=== PATIENT | female | born 1990 | race Caucasian/White ===

== ENCOUNTER → 2018-10-02 | Outpatient (CLI) | payer BC ==
--- NOTE | 2018-10-02 08:47 | Diagnostic Imaging Report ---
Exam: KUB - 2 views Indication: Renal calculi Comparison: None Findings: 5 mm right lower pole renal calculus. No other radiographically apparent renal calculi. Nonobstructive bowel gas pattern. The osseous structures appear unremarkable. Impression: 5 mm right lower pole renal calculus. Signed by: Helder Hyde MD on 10/02/2018 8:44 AM
--- NOTE | 2018-10-02 09:02 | Diagnostic Imaging Report ---
EXAM: Renal Ultrasound INDICATION: ^[id number] ^[id number] COMPARISON: None TECHNIQUE: Transverse and longitudinal images of the kidneys and bladder were obtained. FINDINGS: Right Kidney: Length: 10.6 cm Appearance: Normal echogenicity. Collecting system: No hydronephrosis Stones: None Cyst/Mass: None Left Kidney: Length: 10.6 cm Appearance: Normal echogenicity. Collecting system: No hydronephrosis Stones: None Cyst/Mass: None Bladder: No mass or calculi. Prevoid volume estimate of 105.5 cc. Bilateral ureteral jets seen. Post void images demonstrate volume estimate of 6.4 cc. IMPRESSION: No hydronephrosis. The right lower pole 5 mm renal calculus seen on KUB is not well appreciated on this sonographic examination. Signed by: Helder Hyde MD on 10/02/2018 8:59 AM
--- NOTE | 2018-10-02 09:02 | Diagnostic Imaging Report ---
EXAM: Renal Ultrasound INDICATION: ^[id number] ^[id number] COMPARISON: None TECHNIQUE: Transverse and longitudinal images of the kidneys and bladder were obtained. FINDINGS: Right Kidney: Length: 10.6 cm Appearance: Normal echogenicity. Collecting system: No hydronephrosis Stones: None Cyst/Mass: None Left Kidney: Length: 10.6 cm Appearance: Normal echogenicity. Collecting system: No hydronephrosis Stones: None Cyst/Mass: None Bladder: No mass or calculi. Prevoid volume estimate of 105.5 cc. Bilateral ureteral jets seen. Post void images demonstrate volume estimate of 6.4 cc. IMPRESSION: No hydronephrosis. The right lower pole 5 mm renal calculus seen on KUB is not well appreciated on this sonographic examination. Signed by: Helder Hyde MD on 10/02/2018 8:59 AM
== END ==
LOC: US 07:38
PROVIDERS: ATTEND Urology
DX: N20.0 Calculus of kidney (principal)
CPT/HCPCS: 74018; 76770; 76857

== ENCOUNTER 2019-01-10 00:23 | Inpatient (IN) | payer BC ==
[~2019-01-10] VITALS: Ht 149.9 cm; Wt 71.2 kg
[2019-01-10] VITALS (8 sets, daily range): BP systolic 105–135; BP diastolic 56–88
[~2019-01-10 00:23] MED LIST: ADDERALL 10 MG10 MG PO; PHENTERMINE H37.5 M1 PO
--- NOTE | 2019-01-10 00:30 | NUR ---
Patient does not want a straight cath, dr chavis informed
[2019-01-10] MEDS ORDERED: KETOROLAC TROMETHAMINE 30 MG/ML VIAL IV STA (00:38)
[2019-01-10] MEDS ORDERED: SODIUM CHLORIDE 0.9% 1000ML 1,000 ML IV STA (00:38)
[2019-01-10 00:52] LABS: BASOPHILS # (AUTO) 0.1 (0.0-0.1); BASOPHILS % 0.3 % (0.0-1.0); EOSINOPHILS % 0.2 % (0.0-6.0); HEMATOCRIT 40.6 % (34.2-44.1); HEMOGLOBIN 13.7 g/dL (12.0-16.0); LYMPHOCYTES # (AUTO) 2.7 (1.0-3.2); LYMPHOCYTES % 16.1 % (18.0-39.1); MEAN CORPUSCULAR HEMOGLOBIN 28.8 pg (28-32); MEAN CORPUSCULAR HGB CONC 33.7 g/dL (31-35); MEAN CORPUSCULAR VOLUME 85.3 fL (81-99); MONOCYTES # (AUTO) 0.8 (0.2-0.8); MONOCYTES % 4.9 % (4.4-11.3); NEUTROPHILS % 78.1 % (38.7-80.0); PLATELET COUNT 337 x10e3/uL (140-360); RED BLOOD COUNT 4.76 x10e6/uL (3.6-5.1); RED CELL DISTRIBUTION WIDTH 12.3 % (11.7-14.4)
[2019-01-10 00:53] LABS: BILIRUBIN,URINE NEGATIVE (NEGATIVE); CLARITY,URINE CLEAR (CLEAR); COLOR,URINE ORANGE (YELLOW); KETONES,URINE NEGATIVE (NEGATIVE); LEUKOCYTE ESTERASE ,URINE NEGATIVE (NEGATIVE); NITRITE,URINE POSITIVE (NEGATIVE); PROTEIN,URINE DIPSTICK 1+ (NEGATIVE); URINE UROBILINOGEN 1 mg/dL (0.2 - 1)
[2019-01-10 01:03] LABS: RBC,URINE >50 /HPF (0-5)
[2019-01-10 01:04] LABS: BACTERIA,URINE MODERATE /HPF; EPITHELIAL CELLS,URINE FEW /LPF; MUCUS,URINE MODERATE (RARE)
[2019-01-10 01:14] LABS: ALANINE AMINOTRANSFERASE 11 IU/L (0-55); ALBUMIN 4.2 g/dL (3.5-5.0); ALBUMIN/GLOBULIN RATIO 1.2 (0.8-2.0); ALKALINE PHOSPHATASE 55 IU/L (40-150); ANION GAP 15.6 mmol/L (8-16); BLOOD UREA NITROGEN 12 mg/dL (7-26); BUN/CREATININE RATIO 12 (6-25); CALCIUM 9.7 mg/dL (8.4-10.2); CARBON DIOXIDE 22 mmol/L (22-29); CHLORIDE 106 mmol/L (98-107); CREATININE, SERUM 1.02 mg/dL (0.57-1.11); EST GLOMERULAR FILTRATION RATE > 60 ML/MIN (60-); GLUCOSE 130 mg/dL (74-118); POTASSIUM 3.6 mmol/L (3.5-5.1); SODIUM 140 mmol/L (136-145)
[2019-01-10] MEDS ORDERED: CEFEPIME HCL 1 GM VIAL IV SCH (01:30)
[2019-01-10] MEDS ORDERED: CEFEPIME 1GM/NS 0.9% 50 ML 50 ML IV ONE (01:45)
[2019-01-10] MEDS ORDERED: MORPHINE SULFATE 5 MG/ML VIAL IV ONE (01:45)
[2019-01-10] MEDS ORDERED: MORPHINE SULFATE INJ 4 MG/ML INJ 1ML ONE (01:58)
--- NOTE | 2019-01-10 01:58 | Diagnostic Imaging Report ---
EXAM: CT Abdomen and Pelvis WITHOUT contrast INDICATION: Right flank pain COMPARISON: Abdominal radiograph 12/27/2018. TECHNIQUE: Abdomen and pelvis were scanned utilizing a multidetector helical scanner from the lung base to the pubic symphysis without administration of IV contrast. Absence of intravenous contrast decreases sensitivity for detection of focal lesions and vascular pathology. Coronal and sagittal reformations were obtained. Routine protocol was performed. IV CONTRAST: None ORAL CONTRAST: None COMPLICATIONS: None RADIATION DOSE: Total DLP: 345 mGy*cm Estimated effective dose: (DLP x 0.015 x size factor) mSv CTDIvol has been reviewed. It is below the limits set by the Radiation Protocol Committee (RPC). Dose modulation, iterative reconstruction, and/or weight based adjustment of the mA/kV was utilized to reduce the radiation dose to as low as reasonably achievable. FINDINGS: LINES and TUBES: None. LOWER THORAX: Unremarkable HEPATOBILIARY: No focal hepatic lesions. No biliary ductal dilation. GALLBLADDER: No radio-opaque stones or sludge. No wall thickening. SPLEEN: No splenomegaly. PANCREAS: No focal masses or ductal dilatation. ADRENALS: No adrenal nodules KIDNEYS/URETERS: A 4 mm obstructive calculus at the right vesicoureteral junction, with mild upstream right hydroureteronephrosis. No cystic or solid mass lesions. Nonobstructive Punctate calculus in a right renal interpolar calyx. GI TRACT: No abnormal distention, wall thickening, or evidence of bowel obstruction. Appendix is normal. PELVIC ORGANS/BLADDER: Unremarkable. LYMPH NODES: No lymphadenopathy. VESSELS: Unremarkable. PERITONEUM / RETROPERITONEUM: No free air or fluid. BONES: Unremarkable. SOFT TISSUES: Unremarkable. IMPRESSION: A 4 mm obstructive calculus at the right vesicoureteral junction, with mild upstream right hydroureteronephrosis. Additional punctate calculus in the right kidney. Signed by: Dany Robb DO on 01/10/2019 1:55 AM
[2019-01-10] MEDS ORDERED: ONDANSETRON HCL INJ 2MG/ML 2ML 2 MG/ML VIAL IV PRN (02:30)
--- NOTE | 2019-01-10 05:02 | NUR ---
PT IS TRANSFERRED FROM ER .PT IS AOX3 . RESPIRATIONS ARE EVEN AND UNLABORED LEFT AC 20 G S/L ASSESSMENT DONE .CALL LIGHT WITH IN REACH .CONTINUE TO MONITOR
[2019-01-10] MEDS: MORPHINE SULFATE INJ 4 MG/ML INJ 1ML IV PRN ×2 (05:51→10:06)
--- NOTE | 2019-01-10 06:31 | NUR ---
C/O PAIN AND GIVEN ORDERED MORPHINE .STRAINED THE URINE .NO STONE FOUND YET .CALL LIGHT WITH IN REACH .CONTINUE TO MONITOR
--- NOTE | 2019-01-10 07:00 | NUR ---
RECEIVED PATIENT RESTING IN BED NO S/S OF DISTRESS. BED LOW, WHEELS LOCKED, SIDE RAILS X2. CALL LIGHT IN REACH WILL CONTINUE TO MONITOR PATIENT.
--- NOTE | 2019-01-10 07:02 | NUR ---
BEDSIDE REPORT GIVEN TO THE ONCOMING NURSE
[2019-01-10 07:26] LABS: CREATINE KINASE MB 1.1 ng/mL (0-5.0)
[2019-01-10 09:28] LABS: CREATINE KINASE MB 1.1 ng/mL (0-5.0)
--- NOTE | 2019-01-10 11:05 | NUR ---
PATIENT A/O X3, EVEN RESPIRATIONS ON RA. LUNG SOUNDS CLEAR TO AUSCULTATION. BOWEL SOUNDS PRESENT. PATIENT AMBULATES INDEPENDENTLY. RIGHT AC 20 GAUGE IV SL. MORPHINE Q4 PRN FOR PAIN. CALL LIGHT IN REACH WILL CONTINUE TO MONITOR PATIENT.
[2019-01-10] MEDS: SODIUM CHLORIDE 0.9% 1000ML 1,000 ML IV SCH ×2 (11:50→20:26)
[2019-01-10] MEDS: HYDROMORPHONE 1MG/1ML INJ IV PRN ×2 (12:01→18:47)
[2019-01-10] MEDS: DIPHENHYDRAMINE HCL INJ 50 MG/ML VIAL IV PRN ×2 (13:11→21:50)
[2019-01-10] MEDS: CEFEPIME 1GM/NS 0.9% 50 ML 50 ML IV SCH ×2 (13:11→20:26)
--- NOTE | 2019-01-10 14:10 | NUR ---
Visit made by the Spiritual Care Department MARY CARMEN AugustinelaAdriana phillips. PV provided pastoral presence, hospitality, prayer, and supportive listening. Pastoral Visitor informed pt/family of the scope of Unit Operator Services and availability. CHRISTIAN Augustinelain Spiritual Care Department O: [phone]
[2019-01-10] MEDS: KETOROLAC TROMETHAMINE 30 MG/ML VIAL IV PRN ×2 (14:23→20:35)
[2019-01-10 16:40] LABS: CREATINE KINASE MB 1.2 ng/mL (0-5.0)
[2019-01-10] MEDS: ENOXAPARIN SOD INJ 40 MG/0.4 ML SYR SC SCH (17:41)
--- NOTE | 2019-01-10 18:01 | History and Physical ---
CHIEF COMPLAINT: Right-sided flank pain. HISTORY OF PRESENT ILLNESS: This lady is a 28-year-old female with known history of nephrolithiasis, comes in with right-sided flank pain that radiated to her right groin area. The patient recently had lithotripsy performed by Dr. Urban. Of note, last night around 7 p.m. noticed right-sided flank pain, severe onset and came in to the emergency room for further evaluation. She was found to have a urinary tract infection and 4 mm stone in the right flank ureteral area. The patient was seen and evaluated at bedside on the medical floor. She is currently doing much better. She does report having some pain in which the pain medications were adjusted accordingly. REVIEW OF SYSTEMS: Pertinent positives: Right-sided flank pain. Pertinent negatives: Denies any chest pain, palpitation, nausea, vomiting, diarrhea, dysuria, hematuria, frequency, urgency, lightheadedness, dizziness, abdominal pain, headaches, shortness of breath, cough, congestion, fever, or any other complaints. The rest of the 14-point review of systems have been reviewed with the patient and are negative. ALLERGIES: NO KNOWN DRUG ALLERGIES. HOME MEDICATIONS: Takes Adderall 10 mg daily and phentermine daily. PAST MEDICAL HISTORY: She has history of ADHD and nephrolithiasis. PAST SURGICAL HISTORY: She has cystoscopy with lithotripsy for renal stones. FAMILY HISTORY: Hypertension and diabetes. SOCIAL HISTORY: No drugs. No alcohol. Does not smoke. Good social support. PHYSICAL EXAMINATION: VITAL SIGNS: Temperature is 97.4, pulse 61, respiratory rate is 15, blood pressure 105/60, and pulse ox 98% on room air. GENERAL: Not in acute distress. Alert and oriented x3. Cooperative on examination. HEENT: Head; normocephalic, atraumatic. Eyes; pupils are equal, round, and reactive to light bilaterally. Extraocular movements intact bilaterally. Throat; no evidence of erythema or exudates in the posterior pharynx. Has poor dentition. NECK: Supple. Good range of motion. PULMONARY: Clear to auscultation bilaterally. No wheezing, no rales, no rhonchi, no crackles appreciated. CARDIOVASCULAR: Positive S1 and S2. No murmurs, rubs, or gallops appreciated. ABDOMEN: Soft and nondistended. Bowel sounds present. She is tender to palpation in the right flank area. MUSCULOSKELETAL: Strength is 5/5 throughout. No evidence of any muscle deficits on examination. No weakness appreciated. NEUROLOGIC: Cranial nerves II through XII grossly intact. No evidence of any neurological deficits on exam. SKIN: Intact. Warm to touch. Good cap refill. PSYCHIATRIC: Normal affect and mood. EXTREMITIES: No edema. Good range of motion throughout. LABORATORY FINDINGS: Show white count is 16.6, hemoglobin 13.7, hematocrit is 41, and platelets of 337. Chemistry; sodium 140, potassium 3.6, chloride 106, bicarb 22, anion gap of 15, BUN 12, creatinine is 1, glucose is 130, and calcium is 9.7. LFTs within normal range. Troponins were negative. Albumin was 4.2. Urinalysis concerning for UTI. Urine test was negative. MICROBIOLOGY: Urine cultures are pending. IMAGING STUDIES: CT abdomen and pelvis shows a 4 mm obstructing calculus at the right vesicoureteral junction with mild upstream right hydroureteronephrosis. Additional punctate calculus in the right kidney. IMPRESSION: 1. A 4 mm obstructive calculus with right hydroureteronephrosis. 2. Right-sided flank pain secondary to nephrolithiasis. 3. Nausea, decreased oral intake. 4. History of attention-deficit/hyperactivity disorder. PLAN: At this time, monitor urine cultures, IV antibiotics. Urology consulted for further management and care. IV fluids, pain control. N.p.o. for now for possible intervention later today if indicated by Urology. Resume same home medications. Put on Lovenox for DVT prophylaxis. Otherwise, we will continue with same plan of care. Discussed plan of care with nursing staff. I did change her pain medication to IV Dilaudid 0.5 mg IV q.4 hours p.r.n. for pain, as she reports severe episodic right-sided flank pain. MD CHON Ambriz/GINA /[id number]
--- NOTE | 2019-01-10 19:05 | NUR ---
received report from day nurse. patient is resting comfortably in bed. bed is in lowest position and call avina is within reach. will continue to monitor patient's plan of care.
[2019-01-11] VITALS (8 sets, daily range): BP systolic 92–126; BP diastolic 57–77
[2019-01-11] MEDS: CEFEPIME 1GM/NS 0.9% 50 ML 50 ML IV SCH ×3 (05:10→21:18)
[2019-01-11 05:58] LABS: BASOPHILS % 0.3 % (0.0-1.0); EOSINOPHILS # (AUTO) 0.1 (0.0-0.4); EOSINOPHILS % 1.4 % (0.0-6.0); HEMATOCRIT 35.7 % (34.2-44.1); HEMOGLOBIN 11.5 g/dL (12.0-16.0); LYMPHOCYTES # (AUTO) 3.3 (1.0-3.2); LYMPHOCYTES % 45.9 % (18.0-39.1); MEAN CORPUSCULAR HEMOGLOBIN 28.5 pg (28-32); MEAN CORPUSCULAR HGB CONC 32.2 g/dL (31-35); MEAN CORPUSCULAR VOLUME 88.6 fL (81-99); MONOCYTES # (AUTO) 0.4 (0.2-0.8); MONOCYTES % 5.7 % (4.4-11.3); NEUTROPHILS # (AUTO) 3.4 (2.1-6.9); NEUTROPHILS % 46.4 % (38.7-80.0); PLATELET COUNT 242 x10e3/uL (140-360); RED BLOOD COUNT 4.03 x10e6/uL (3.6-5.1); RED CELL DISTRIBUTION WIDTH 12.4 % (11.7-14.4)
[2019-01-11 06:25] LABS: ALANINE AMINOTRANSFERASE 9 IU/L (0-55); ALKALINE PHOSPHATASE 43 IU/L (40-150); ANION GAP 10.6 mmol/L (8-16); BLOOD UREA NITROGEN 12 mg/dL (7-26); BUN/CREATININE RATIO 17 (6-25); CALCIUM 7.9 mg/dL (8.4-10.2); CARBON DIOXIDE 21 mmol/L (22-29); CHLORIDE 111 mmol/L (98-107); CREATININE, SERUM 0.69 mg/dL (0.57-1.11); EST GLOMERULAR FILTRATION RATE > 60 ML/MIN (60-); GLUCOSE 83 mg/dL (74-118); POTASSIUM 3.6 mmol/L (3.5-5.1); SODIUM 139 mmol/L (136-145)
--- NOTE | 2019-01-11 07:04 | NUR ---
report given to day nurse. patient is resting comfortably in bed. bed is in lowest position and call avina is within reach.
[2019-01-11] MEDS ORDERED: D AMPHET PO SCH (09:00)
[2019-01-11] MEDS ORDERED: AMPHET ASP PO SCH (09:00)
[2019-01-11] MEDS ORDERED: AMPHET PO SCH (09:00)
--- NOTE | 2019-01-11 09:16 | NUR ---
Patient up in bed, not in any distress, Dr Lua had rounds.
[2019-01-11] MEDS: KETOROLAC TROMETHAMINE 30 MG/ML VIAL IV PRN ×3 (09:53→21:36)
[2019-01-11] MEDS: SODIUM CHLORIDE 0.9% 1000ML 1,000 ML IV SCH ×2 (10:50→21:30)
--- NOTE | 2019-01-11 13:52 | Diagnostic Imaging Report ---
EXAM: Abdomen Radiograph 1 View(s) INDICATION: Kidney stone. COMPARISON: 12/27/2018. FINDINGS: No lines or tubes. Normal volume of stool in the colon. No dilated loops of small bowel. The previously seen 4 mm calculus at the right ureterovesical junction is not seen on this exam. No abnormal soft tissue masses. No pneumoperitoneum. No acute osseous abnormality. IMPRESSION: The previously seen 4 mm calculus at the right ureterovesical junction is not seen on this exam. Signed by: Ramiro Clark MD on 01/11/2019 7:46 AM
--- NOTE | 2019-01-11 15:21 | NUR ---
RECEIVED NOTICE FROM THE BUSINESS OFFICE - INPT approved for 3 days stay eff 01/10/19 - 01/13/19, if pt goes over please fax clinicals to #[phone], refer to auth # [id number]. CALL TO DR. TAN FOR INPT STAY. NOTED KUB RESULT TODAY. WILL AWAIT CALL BACK.
[2019-01-11] MEDS: ENOXAPARIN SOD INJ 40 MG/0.4 ML SYR SC SCH (17:20)
--- NOTE | 2019-01-11 20:15 | NUR ---
received report from day shift nurse. patient is resting comfortably in bed. bed is in lowest position and call avina is within reach. will continue to monitor patient.
[2019-01-12] VITALS (8 sets, daily range): BP systolic 105–125; BP diastolic 58–74
[2019-01-12] MEDS: CEFEPIME 1GM/NS 0.9% 50 ML 50 ML IV SCH ×3 (05:11→20:49)
[2019-01-12 06:38] LABS: BASOPHILS % 0.6 % (0.0-1.0); EOSINOPHILS # (AUTO) 0.2 (0.0-0.4); EOSINOPHILS % 2.7 % (0.0-6.0); HEMATOCRIT 36.7 % (34.2-44.1); HEMOGLOBIN 12.1 g/dL (12.0-16.0); LYMPHOCYTES # (AUTO) 2.7 (1.0-3.2); LYMPHOCYTES % 38.5 % (18.0-39.1); MEAN CORPUSCULAR HEMOGLOBIN 28.6 pg (28-32); MEAN CORPUSCULAR VOLUME 86.8 fL (81-99); MONOCYTES # (AUTO) 0.4 (0.2-0.8); NEUTROPHILS # (AUTO) 3.6 (2.1-6.9); NEUTROPHILS % 51.9 % (38.7-80.0); PLATELET COUNT 262 x10e3/uL (140-360); RED BLOOD COUNT 4.23 x10e6/uL (3.6-5.1); RED CELL DISTRIBUTION WIDTH 12.3 % (11.7-14.4)
--- NOTE | 2019-01-12 06:49 | NUR ---
report given to day nurse. patient is resting comfortably in bed. bed is in lowest position and call avina is within reach.
[2019-01-12 07:07] LABS: BLOOD UREA NITROGEN 9 mg/dL (7-26); BUN/CREATININE RATIO 13 (6-25); CALCIUM 8.4 mg/dL (8.4-10.2); CARBON DIOXIDE 22 mmol/L (22-29); CHLORIDE 109 mmol/L (98-107); CREATININE, SERUM 0.68 mg/dL (0.57-1.11); EST GLOMERULAR FILTRATION RATE > 60 ML/MIN (60-); GLUCOSE 91 mg/dL (74-118); SODIUM 139 mmol/L (136-145)
[2019-01-12] MEDS ORDERED: IOPAMIDOL 300MG/ML 100 ML INFUS..BTL IV ONE (10:28)
--- NOTE | 2019-01-12 12:04 | NUR ---
patient off the unit for IVP, Stable
[2019-01-12] MEDS: KETOROLAC TROMETHAMINE 30 MG/ML VIAL IV PRN (12:55)
[2019-01-12] MEDS: ENOXAPARIN SOD INJ 40 MG/0.4 ML SYR SC SCH (16:15)
--- NOTE | 2019-01-12 18:54 | NUR ---
received repot from day nurse. patient is resting comfortably in bed. bed is in lowest position and call avina is within reach. will continue to monitor patient.
[2019-01-12] MEDS: SODIUM CHLORIDE 0.9% 1000ML 1,000 ML IV SCH (20:49)
[2019-01-13 00:56] VITALS: BP 100/56
[2019-01-13 04:00] VITALS: BP 111/56
[2019-01-13] MEDS: CEFEPIME 1GM/NS 0.9% 50 ML 50 ML IV SCH (05:03)
[2019-01-13] MEDS: SODIUM CHLORIDE 0.9% 1000ML 1,000 ML IV SCH (05:04)
[2019-01-13 06:17] LABS: BASOPHILS % 0.6 % (0.0-1.0); EOSINOPHILS # (AUTO) 0.2 (0.0-0.4); HEMATOCRIT 37.2 % (34.2-44.1); HEMOGLOBIN 12.4 g/dL (12.0-16.0); LYMPHOCYTES # (AUTO) 2.6 (1.0-3.2); LYMPHOCYTES % 37.6 % (18.0-39.1); MEAN CORPUSCULAR HEMOGLOBIN 28.7 pg (28-32); MEAN CORPUSCULAR HGB CONC 33.3 g/dL (31-35); MEAN CORPUSCULAR VOLUME 86.1 fL (81-99); MONOCYTES # (AUTO) 0.4 (0.2-0.8); NEUTROPHILS # (AUTO) 3.7 (2.1-6.9); NEUTROPHILS % 52.5 % (38.7-80.0); PLATELET COUNT 273 x10e3/uL (140-360); RED BLOOD COUNT 4.32 x10e6/uL (3.6-5.1); RED CELL DISTRIBUTION WIDTH 12.3 % (11.7-14.4)
[2019-01-13 06:48] LABS: BLOOD UREA NITROGEN 8 mg/dL (7-26); BUN/CREATININE RATIO 12 (6-25); CALCIUM 8.5 mg/dL (8.4-10.2); CHLORIDE 109 mmol/L (98-107); CREATININE, SERUM 0.69 mg/dL (0.57-1.11); EST GLOMERULAR FILTRATION RATE > 60 ML/MIN (60-); GLUCOSE 87 mg/dL (74-118); POTASSIUM 4.3 mmol/L (3.5-5.1); SODIUM 139 mmol/L (136-145)
[2019-01-13 07:06] LABS: ANION GAP 10.3 mmol/L (8-16); CARBON DIOXIDE 23 mmol/L (22-29)
[2019-01-13 07:15] VITALS: BP 111/65
--- NOTE | 2019-01-13 07:15 | NUR ---
PATIENT IN BED WITH HEAD OF BED ELEVATED PLAYING ON HER PHONE. DENIED PAIN AT THIS TIME. BED IN LOWER POSITION, CALL LIGHT AT REACH.
--- NOTE | 2019-01-13 07:25 | NUR ---
report given to day nurse. patient is resting in bed. bed is in lowest position and call light is within reach.
[2019-01-13 07:37] VITALS: BP 111/65
--- NOTE | 2019-01-13 08:53 | Diagnostic Imaging Report ---
Exam: KUB - 2 views Indication: Hydronephrosis Comparison: KUB 01/11/2019 Findings: Live Truck Technician KUB demonstrates nonobstructive bowel gas pattern and no radiographically apparent renal calculi. The osseous structures appear unremarkable. IV pyelogram shows mild left hydronephrosis and no right hydronephrosis. The ureter appears normal throughout its course on the right. The left distal ureter is not well opacified on any of the images. Contrast fills the bladder. Impression: Mild left hydronephrosis. Distal left ureter not well opacified, limiting evaluation for obstructive lesion. No right hydronephrosis. No radiographically apparent renal calculi. Signed by: Helder Hyde MD on 01/13/2019 8:50 AM
[2019-01-13 11:12] VITALS: BP 133/75
--- NOTE | 2019-01-13 11:44 | NUR ---
PATIENT PASSED A SMALL STONE. COLLECTED AND SENT TO THE LAB. IN BED WITH CALL LIGHT AT REACH.
--- NOTE | 2019-01-13 13:15 | Discharge Summary ---
FINAL DISCHARGE DIAGNOSES: 1. Obstructive calculus with right hydroureteronephrosis, status post stone passed, now with much improvement. 2. Right-sided flank pain secondary to nephrolithiasis-resolved. 3. Nausea, vomiting, decreased oral intake-resolved. 4. History of attention deficit hyperactivity disorder. CONSULTANTS: Urology. PHYSICAL EXAMINATION: VITAL SIGNS: Temperature 96.6, pulse 60, respiratory rate is 18, blood pressure 132/75, and pulse ox 99% on room air. LABORATORY FINDINGS: Show white count on admission was 16.6, now 6.9, hemoglobin 12.4, hematocrit is 37, and platelets of 273. Chemistry; sodium 139, potassium 4.3, chloride 109, bicarb 23, anion gap of 10, BUN is 8, creatinine 0.69, glucose is 87, and calcium 8.5. LFTs within normal range. Troponins were all negative. Albumin was 3. Urinalysis concerning for UTI. Stone analysis now pending as the patient passes stone. Urine cultures were found to be negative. IMAGING STUDIES: CT abdomen and pelvis shows a 4 mm obstructing calculus of the right vesicoureteral junction with mild upstream right hydroureteronephrosis. Additional punctate calculus in the right kidney. Abdominal x-ray on 01/11/2019, shows a previously seen 4 mm calculus at the right ureterovesical junction is not seen on this exam. IVP was performed, shows mild left hydronephrosis. Distal left ureter not well opacified as limiting evaluation of obstructive lesion. No right hydronephrosis. No radiographically apparent renal calculi. HOSPITAL COURSE: This is a 28-year-old female, who came into the ED with complaints of right-sided flank pain with imaging studies consistent with a 4 mm obstructive ureteral stone. Urology was consulted. The patient was started on broad-spectrum IV antibiotics, pain control. Urine cultures were found to be negative. Imaging studies, abdominal x-ray on 01/08/2019, shows no stone with IVP performed on 09/11/2018, shows no radiographic apparent right renal calculi with no right hydronephrosis. The patient did well throughout the hospital course. She actually passed the stone while she was here in the hospital, was sent for analysis. She was cleared for discharge by Urology with outpatient followup. On the day of discharge, vital signs were stable, labs were reviewed and stable. The patient was seen, evaluated, and examined thoroughly on the day of discharge. No other complaints. The patient verbalized understanding and agrees to plan of care to follow up accordingly as an outpatient with the primary care physician in 1 week and the urologist in 1 to 2 weeks' time. MEDICATIONS: See med reconciliation form. DISPOSITION: Home. CONDITION: Stable. DIET: Heart healthy. In the event of any worsening symptoms, the patient was advised to come back to the ED for further evaluation. Discharge summary took greater than 35 minutes. MD CHON Ambriz/MODRenée /[id number]
[2019-01-13] MEDS ORDERED: TYLENOL WITH C1 EACH PO (14:01)
--- NOTE | 2019-01-13 14:45 | NUR ---
PATIENT DISCHARGED HOME. DISCHARGE INSTRUCTIONS, PRESCRIPTIONS, AND FOLLOW UP GIVEN TO PATIENT, SHE VERBALIZED UNDERSTANDING. IV TO RIGHT AC REMOVED WITH TIP INTACT. ALL PERSONAL ITEMS TAKEN WITH PATIENT. REFUSED WHEEL CHAIR, BUT WAS ACCOMPANIED BY HOSPITAL STAFF TO FRONT LOBBY IN STABLE CONDITION.
== END 2019-01-13 14:49 | disposition home or self-care (01) | DRG 694 ==
LOC: ER 00:23 → ERHOLD 03:32 → MED/SURG3 03:51 → OBSVTOIN 01-11 15:31
PROVIDERS: ADMIT Internal Medicine; ATTEND Internal Medicine
DX: N13.2 Hydronephrosis with renal and ureteral calculous obstruction (principal); F90.9 Attention-deficit hyperactivity disorder, unspecified type; Z83.3 Family history of diabetes mellitus; Z82.49 Family history of ischemic heart disease and other diseases of the circulatory system
CPT/HCPCS: 36415; 74018; 74176; 74400; 80048; 80053; 81001; 81025; 82550; 82553; 84484; 85025; 87086; 88300; 99284; G0378; J0692; J1170; J1200; J1650; J1885; J2270; J2405; J7030; Q9967

== ENCOUNTER 2019-10-20 13:26 | Emergency (ER) | payer BC ==
[~2019-10-20] VITALS: Ht 149.9 cm; Wt 72.6 kg
[~2019-10-20 13:26] MED LIST changes: +TYLENOL WITH C1 EACH PO
[2019-10-20] MEDS ORDERED: ONDANSETRON HCL 4 MG ORAL DISINTEGRATING TAB PO ONE (14:00)
[2019-10-20] MEDS ORDERED: ACETAMINOPHEN 325 MG TAB PO ONE (14:00)
[2019-10-20] MEDS ORDERED: KETOROLAC TROMETHAMINE 60 MG/2 ML VIAL IM ONE (14:00)
[2019-10-20] MEDS ORDERED: ONDANSETRON HCL 4 MG ORAL DISINTEGRATING TAB ONE (14:02)
--- OUTSIDE RECORDS SUMMARY | 2019-10-20 14:41 | XMS REPORT | Continuity of Care Document ---
Author Author [facility] t Organization [facility] Address [address] [place] [address] Phone Unavailable Care Team Providers Care Human Resources Talent Manager Name Role Phone Marcello TATE MD PCP DAHU, S JIRIES Attphys Unavailable HAMPEL, VIKTOR Attphys Unavailable DAHU, S JIRIES Admphys Unavailable Payers Payer Name Policy Type Policy Number Effective Date Expiration Date S nayeli [facility] [id number] 2018 00:00:00 [facility] Problems Condition Name Condition Details Condition Category Status Onset Date Resolution Date Last Treatment Date Treating Clinician Comments Source Urinary tract infection UTI (urinary tract infection) Problem Active [facility] Calculus of ureter Ureterolithiasis Problem Active [facility] Allergies, Adverse Reactions, Alerts Allergy Name Allergy Type Status Severity Reaction(s) Onset Date Inacti ve Date Treating Clinician Comments Source No Known Allergies DA Active U 2013-01-29 00:00:00 [facility] Medications Ordered Medication Name Filled Medication Name Start Date Stop Da te Current Medication? Ordering Clinician Indication Dosage Frequency Signature (SIG) Comments Components Source Acetaminophen With Codeine (Tylenol With Codeine #3 Ta blet) 1 Each Tablet Acetaminophen With Codeine (Tylenol With Codeine #3 Tablet) 1 Each Tablet Yes 300 Every 4 Hours as needed for Abdominal Pa in [facility] Amphet Asp/Amphet/D-Amphet (Adderall 10 Mg Tablet) 10 Mg Tablet Amphet Asp/Amphet/D-Amphet (Adderall 10 Mg Tablet) 10 Mg Tablet Yes 2 Daily [facility] Phentermine Hcl 37.5 Mg Tablet Phentermine Hcl 37.5 Mg Tablet Yes 37.5 Daily [facility] Procedures Procedure Date / Time Performed Performing Clinician [facility] e [facility] of abdomen and pelvis without contrast 2019-01-10 00:00:00 SA FRAIREADRIANNA Henley [facility] Extracorporeal shock wave lithotripsy (ESWL) 2018-12-27 [facility] with retrograde pyelography 2018-12-27 00:00:00 DANAE Chinchilla [facility] Ultrasound, renal 2018-10-02 00:00:00 ELLEHERIBERTO FRIEDMAN [facility] Ultrasound examination of pelvis, limited or follow-up 10-02 00:00:00 [facility] Encounters Start Date/Time End Date/Time Encounter Type Admission Type [facility] Care Department Encounter ID Source 2019-01-11 15:31:00 2019-01-13 14:49:00 Discharged Inpatient 1 LADI TAN [facility] [id number] [facility] 2018-12-27 11:19:00 2018-12-27 11:19:00 Registered Surgical Day Car e 3 TERI, [facility] [id number] [facility] 2018-10-02 07:38:00 2018-10-02 07:38:00 Registered Clinic 3 GOMEZ DEMARCUSZACH [facility] [id number] [facility] Results Test Description Test Time Test Comments Results Result Comments Source INTRAVENOUS PYELOGRAM (IVP) 2019-01-13 08:44:00 [place] [address] Patient Name: MIGUEL BIRCH MR #: [id number] : 1990 Age/Sex: 28/F Req #: [id number] Adm Physician: LADI TAN MD Ordered by: MARCELO VIGIL MD Report #: [id number] Location: [facility] Room/Bed: 2841 Procedure: [id number] DX/INTRAVENOUS PYELOGRAM (IVP) Exam Date: 01/12/19 Exam Time: 1203 REPORT STATUS: Signed Exam: KUB - 2 views Indication: Hydronephrosis Comparison: KUB 01/11/2019 Findings: Preschool Teacher'S Assistant KUB demonstrates nonobstructive bowel gas pattern and no radiographically apparent renal calculi. The osseous structures appear unremarkable. IV pyelogram shows mild left hydronephrosis and no right hydronephrosis. The ureter appears normal throughout its course on the right. The left distal ureter is not well opacified on any of the images. Contrast fills the bladder. Impression: Mild left hydronephrosis. Distal left ureter not well opacified, limiting evaluation for obstructive lesion. No right hydronephrosis. No radiographically apparent renal calculi. Signed by: Jeff Cortez MD on 01/13/2019 8:50 AM Dictated By: JEFF CORTEZ MD 0850 Transcribed By: PEDRO on 01/13/19 0850 COPY TO: MARCELO VIGIL MD Carbon Dioxide Level 2019-01-13 07:10:00 Test Item Carbon Dioxide Level (test code = 2028-9) 23 22-29 [facility] HospitalAnion Nxa1540-19-94 07:10:00* Test Item Value Reference Range Interpretation Comments Anion Gap (test code = 61396-5) 10.3 8-[address] [facility] Pallv[facility]54-42-66 06:49:00* Test Item Value Reference Range Interpretation Comments Sodium Level (test code = 2951-2) 139 136-145 [facility] HospitalPotassium Ffdeo1735-13-05 06:49:00* Test Item Value Reference Range Interpretation Comments Potassium Level (test code = 2823-3) 4.3 3.5-5.1 [facility] HospitalChloride Uclxe1071-07-72 06:49:00* Test Item Value Reference Range Interpretation Comments Chloride Level (test code = 2075-0) 109 98-107 H [facility] HospitalBlood Urea Slkbrsuv2295-96-98 06:49:00* Test Item Value Reference Range Interpretation Comments Blood Urea Nitrogen (test code = 3094-0) 8 - [facility] HospitalCreatinine2019-11-25 06:49:00* Test Item Value Reference Range Interpretation Comments Creatinine (test code = 2160-0) 0.69 0.57-1.11 [facility] HospitalBUN/Creatinine Jocyo7412-95-65 06:49:00* Test Item Value Reference Range Interpretation Comments BUN/Creatinine Ratio (test code = 3097-3) 12 08-13 [facility] HospitalEstimat Glomerular Filtration Rate 2019-01-13 06:49:00* Test Item Value Reference Range Interpretation Comments Estimat Glomerular Filtration Rate (test code = 761278248) > 60 >60 Ranges were taken from the National Kidney Disease Education Program and the Teressa randolph healthal Kid[employer] Foundation literature.Reference ranges:60 or greater: Nlttua70-06 ( for 3 consecutive months): Chronic kidney disease 15 or less: Kidney failureUT Southwestern William [facility]. [facility]. University HospitalGlucose Jvvud5136-86-18 06:49:00* Test Item Value Reference Range Interpretation Comments Glucose Level (test code = HIH6756) 87 74-118 [facility] HospitalCalcium Deozn3283-60-16 06:49:00* Test Item Value Reference Range Interpretation Comments Calcium Level (test code = 47113-3) 8.5 8.4-10.2 [facility] HospitalWhite Blood Xdvwc4713-47-13 06:25:00* Test Item Value Reference Range Interpretation Comments White Blood Count (test code = 6690-2) 6.97 4.8-10.8 [facility] HospitalRed Blood Gghvk7067-45-28 06:25:00* Test Item Value Reference Range Interpretation Comments Red Blood Count (test code = 789-8) 4.32 3.6-5.1 [facility] HospitalHemoglobin2019-11-25 06:25:00* Test Item Value Reference Range Interpretation Comments Hemoglobin (test code = 51994-5) 12.4 12.0-16.0 [facility] HospitalHematocrit2019-11-25 06:25:00* Test Item Value Reference Range Interpretation Comments Hematocrit (test code = 4544-3) 37.2 34.2-44.1 [facility] HospitalMean Corpuscular Gzbvwq5524-45-01 06:25:00* Test Item Value Reference Range Interpretation Comments Mean Corpuscular Volume (test code = 787-2) 86.1 81-99 [facility] HospitalMean Corpuscular Fymznresau7276-15-38 06:25:00* Test Item Value Reference Range Interpretation Comments Mean Corpuscular Hemoglobin (test code = 785-6) 28.7 28-32 [facility] HospitalMean Corpuscular Hemoglobin Concent 2019-01-13 06:25:00* Test Item Value Reference Range Interpretation Comments Mean Corpuscular Hemoglobin Concent (test code = 786-4) 33.3 31-35 [facility] HospitalRed Cell Distribution Eebps1530-12-09 06:25:00* Test Item Value Reference Range Interpretation Comments Red Cell Distribution Width (test code = 78440-7) 12.3 11.7 -14.4 [facility] HospitalPlatelet Wtcbx9895-35-01 06:25:00* Test Item Value Reference Range Interpretation Comments Platelet Count (test code = 777-3) 273 140-360 [facility] HospitalNeutrophils (%) (Auto)2019-01-13 06:25:00 * Test Item Value Reference Range Interpretation Comments Neutrophils (%) (Auto) (test code = 71007-3) 52.5 38.7-80.0 [facility] HospitalLymphocytes (%) (Auto)2019-01-13 06:25:00 * Test Item Value Reference Range Interpretation Comments Lymphocytes (%) (Auto) (test code = 736-9) 37.6 18.0-39.1 [facility] HospitalMonocytes (%) (Auto)2019-01-13 06:25:00* Test Item Value Reference Range Interpretation Comments Monocytes (%) (Auto) (test code = 5905-5) 6.0 4.4-11.3 [facility] HospitalEosinophils (%) (Auto)2019-01-13 06:25:00 * Test Item Value Reference Range Interpretation Comments Eosinophils (%) (Auto) (test code = 713-8) 3.0 0.0-6.0 [facility] HospitalBasophils (%) (Auto)2019-01-13 06:25:00* Test Item Value Reference Range Interpretation Comments Basophils (%) (Auto) (test code = 706-2) 0.6 0.0-1.0 [facility] HospitalIM GRANULOCYTES %2019-01-13 06:25:00* Test Item Value Reference Range Interpretation Comments IM GRANULOCYTES % (test code = IM GRANULOCYTES %) 0.3 0.0- 1.0 [facility] HospitalNeutrophils # (Auto)2019-01-13 06:25:00* Test Item Value Reference Range Interpretation Comments Neutrophils # (Auto) (test code = 751-8) 3.7 2.1-6.9 [facility] HospitalLymphocytes # (Auto)2019-01-13 06:25:00* Test Item Value Reference Range Interpretation Comments Lymphocytes # (Auto) (test code = 22079-3) 2.6 1.0-3.2 [facility] HospitalMonocytes # (Auto)2019-01-13 06:25:00* Test Item Value Reference Range Interpretation Comments Monocytes # (Auto) (test code = 742-7) 0.4 0.2-0.8 [facility] HospitalEosinophils # (Auto)2019-01-13 06:25:00* Test Item Value Reference Range Interpretation Comments Eosinophils # (Auto) (test code = 711-2) 0.2 0.0-0.4 [facility] HospitalBasophils # (Auto)2019-01-13 06:25:00* Test Item Value Reference Range Interpretation Comments Basophils # (Auto) (test code = 704-7) 0.0 0.0-0.1 [facility] HospitalAbsolute Immature Granulocyte (auto 2019-01-13 06:25:00* Test Item Value Reference Range Interpretation Comments Absolute Immature Granulocyte (auto (ashu t code = Absolute Immature Granulocyte (auto) 0.02 0-0.1 [facility] HospitalABDOMEN-1VIEW (KUB)2019-01-11 07:42:00 [place] [address] Patient Name: MIGUEL BIRCH MR #: [id number] : 1990 Age/Sex: 28/F Req #: [id number] Adm Physician: LADI TAN MD Ordered by: VIKTOR WILLIAMSON MD Report #: [id number] Location: [facility] Room/Bed: [facility] Procedure: [id number] DX/DYAN OMEN-1VIEW (KUB) Exam Date: 01/11/19 Exam Time: 0650 REPORT STATUS: Signed EXAM: Abd omen Radiograph 1 View(s) INDICATION: Kidney stone. COMPARISON: 12/28/19. FINDINGS: No lines or tubes. Normal volume of stool in the c olon. No dilated loops of small bowel. The previously seen 4 mm calcul us at the right ureterovesical junction is not seen on this exam. No abno rmal soft tissue masses. No pneumoperitoneum. No acute osseous abnorma lity. IMPRESSION: The previously seen 4 mm calculus at the right urete rovesical junction is not seen on this exam. Signed by: Ramiro Mcdonald MD on 01/11/2019 7:46 AM Dictated By: RAMIRO MCDONALD MD [employer] Signed By: RAMIRO MCDONALD MD on 01/11/19745 Transcribed By: PEDRO on 01/11/19745 COPY TO: VIKTOR WILLIAMSON MD Total Wpdqdjfvl6963-08-76 06:32:00* Test Item Value Reference Range Interpretation Comments Total Bilirubin (test code = 1975-2) 0.4 0.2-1.2 [facility] HospitalAspartate Amino Transf (AST/SGOT) 2019-01-11 06:32:00* Test Item Value Reference Range Interpretation Comments Aspartate Amino Transf (AST/SGOT) (test code = Aspartate Amino Transf (AST/SGOT)) 11 5-34 [facility] HospitalAlanine Aminotransferase (ALT/SGPT) 2019-01-11 06:32:00* Test Item Value Reference Range Interpretation Comments Alanine Aminotransferase (ALT/SGPT) (test code = 1742-6) 9 0-55 [facility] HospitalTotal Qnfjsse0864-17-49 06:32:00* Test Item Value Reference Range Interpretation Comments Total Protein (test code = 2885-2) 5.9 6.5-8.1 L [facility] HospitalAlbumin2019-11-23 06:32:00* Test Item Value Reference Range Interpretation Comments Albumin (test code = 1751-7) 3.0 3.5-5.0 L [facility] HospitalGlobulin2019-11-23 06:32:00* Test Item Value Reference Range Interpretation Comments Globulin (test code = 66733-9) 2.9 2.3-3.5 [facility] HospitalAlbumin/Globulin Atbiq5755-06-81 06:32:00 * Test Item Value Reference Range Interpretation Comments Albumin/Globulin Ratio (test code = 1759-0) 1.0 0.8-2.0 [facility] HospitalAlkaline Skijmtllrse5240-75-85 06:32:00* Test Item Value Reference Range Interpretation Comments Alkaline Phosphatase (test code = 6768-6) 43 40-150 [facility] HospitalCreatine Kinase WW8482-44-90 16:41:00* Test Item Value Reference Range Interpretation Comments Creatine Kinase MB (test code = 00511-5) 1.20 0-5.0 [facility] HospitalTroponin Y5513-06-57 16:41:00* Test Item Value Reference Range Interpretation Comments Troponin I (test code = KUZ7436) 0.032 0-0.300 [facility] HospitalCreatine Vrxdmh5508-47-32 16:34:00* Test Item Value Reference Range Interpretation Comments Creatine Kinase (test code = 2157-6) 49 29-168 [facility] HospitalCT ABDOMEN/PELVIS PZ0355-18-97 01:49:00 [place] [address] Patient Name: MIGUEL BIRCH MR #: [id number] : 1990 Age/Sex: 28/F Req #: [id number] Adm Physician: Ordered by: ADRIANNA HANDLEY DO Report #: [id number] Location: ER Room/Bed: Procedure: [id number] C T/CT ABDOMEN/PELVIS WO Exam Date: 01/10/19 Exam Time : 219 REPORT STATUS: Signed EXA M: CT Abdomen and Pelvis WITHOUT contrast INDICATION: Right flank pain C OMPARISON: Abdominal radiograph 12/27/2018. TECHNIQUE: Abdomen and pelvis were scanned utilizing a multidetector helical scanner from the lung base to the pu bic symphysis without administration of IV contrast. Absence of intravenous co ntrast decreases sensitivity for detection of focal lesions and vascular patho logy. Coronal and sagittal reformations were obtained. Routine protocol was pe rformed. IV CONTRAST: None ORAL CONTRAST: None C OMPLICATIONS: None RADIATION DOSE: Total DLP: 345 mGy*cm Polo mated effective dose: (DLP x 0.015 x size factor) mSv CTDIvol has been re viewed. It is below the limits set by the Radiation Protocol Committee (RPC). Dose modulation, iterative reconstruction, and/or weight based adjustment of the mA/kV was utilized to reduce the radiation dose to as low as reasonably achievable. FINDINGS: LINES and TUBES: None. LOWER THORAX: Unremarkable HEPATOBILIARY: No focal hepatic lesions. No biliary ducta l dilation. GALLBLADDER: No radio-opaque stones or sludge. No wall thicke devaughn. SPLEEN: No splenomegaly. PANCREAS: No focal masses or ductal di latation. ADRENALS: No adrenal nodules KIDNEYS/URETERS: A 4 mm obstructive calculus at the right vesicoureteral junction, with mild upstream right hydroureteronephrosis. No cystic or solid mass lesions. Nonobstruct clemencia Punctate calculus in a right renal interpolar calyx. GI TRACT: No ab normal distention, wall thickening, or evidence of bowel obstruction. Appendix is normal. PELVIC ORGANS/BLADDER: Unremarkable. LYMPH NODES: No lymph adenopathy. VESSELS: Unremarkable. PERITONEUM / RETROPERITONEUM: No fr ee air or fluid. BONES: Unremarkable. SOFT TISSUES: Unremarkable. IMPRESSION: A 4 mm obstructive calculus at the right vesicoureteral junction, with mild upstream right hydroureteronephrosis. Additional punctate calculus in the right kidney. Signed by: Dany Garcia DO on 01/10/2019 1:55 AM Dictated By: DANY GARCIA DO 4 Transcribed By: PEDRO on 01/10/19154 COPY TO: ADRIANNA HANDLEY DO Urine FJX9115-91-39 01:04:00* Test Item Value Reference Range Interpretation Comments Urine WBC (test code = 5821-4) 6-10 0-5 H [facility] HospitalU[facility] WGL1983-92-92 01:04:00* Test Item Value Reference Range Interpretation Comments Urine RBC (test code = 50035-4) >50 0-5 H [facility] HospitalUrine Mqafoxll5813-56-17 01:04:00* Test Item Value Reference Range Interpretation Comments Urine Bacteria (test code = 70827-0) MODERATE NONE H [facility] HospitalUrine Epithelial Oanju8939-51-80 01:04:00 * Test Item Value Reference Range Interpretation Comments Urine Epithelial Cells (test code = 26881-2) FEW NONE [facility] HospitalUrine Nyduv8213-45-37 01:04:00* Test Item Value Reference Range Interpretation Comments Urine Mucus (test code = 8247-9) MODERATE RARE H [facility] HospitalUrine Qmrxo0384-12-95 00:54:00* Test Item Value Reference Range Interpretation Comments Urine Color (test code = 5778-6) ORANGE YELLOW H [facility] HospitalUrine Zenlbaa6752-01-22 00:54:00* Test Item Value Reference Range Interpretation Comments Urine Clarity (test code = 47983-2) CLEAR CLEAR [facility] HospitalUrine Specific Fcfolua2084-78-93 00:54:00 * Test Item Value Reference Range Interpretation Comments Urine Specific [place] (test code = 5811-5) 1.025 1.010-1.02 5 [facility] HospitalUrine eK8585-01-40 00:54:00* Test Item Value Reference Range Interpretation Comments Urine pH (test code = 48163-9) 6 5-7 [facility] HospitalUrine Leukocyte Euoijumi3084-49-20 00:54:00* Test Item Value Reference Range Interpretation Comments Urine Leukocyte Esterase (test code = 01573-4) NEGATIVE NEGATIV E [facility] HospitalUrine Hoczmol8946-10-67 00:54:00* Test Item Value Reference Range Interpretation Comments Urine Nitrite (test code = 49332-7) POSITIVE NEGATIVE H [facility] HospitalUrine Qqrnfmk5872-89-81 00:54:00* Test Item Value Reference Range Interpretation Comments Urine Protein (test code = 25298-6) 1+ NEGATIVE H [facility] HospitalUrine Glucose (UA)2019-01-10 00:54:00* Test Item Value Reference Range Interpretation Comments Urine Glucose (UA) (test code = 17862-5) NEGATIVE NEGATIVE [facility] HospitalUrine Cbtybjr9153-79-79 00:54:00* Test Item Value Reference Range Interpretation Comments Urine Ketones (test code = 19224-0) NEGATIVE NEGATIVE [facility] HospitalUrine Deljlrrlysmv9526-38-73 00:54:00* Test Item Value Reference Range Interpretation Comments Urine Urobilinogen (test code = 22719-1) 1 0.2-1 [facility] HospitalUrine Wcwmutdih5709-45-97 00:54:00* Test Item Value Reference Range Interpretation Comments Urine Bilirubin (test code = 1977-8) NEGATIVE NEGATIVE [facility] HospitalUrine Skrra7818-43-93 00:54:00* Test Item Value Reference Range Interpretation Comments Urine Blood (test code = 31518-8) 3+ NEGATIVE [facility] HospitalUrine Nowk3730-41-83 00:53:00* Test Item Value Reference Range Interpretation Comments Urine Test (test code = 2106-3) NEGATIVE NEGATIVE [facility] HospitalParathyroid Jiznwtz8745-26-10 23:49:00* Test Item Value Reference Range Interpretation Comments Parathyroid Hormone (test code = 2731-8) 18 15-65 [facility] HospitalCalcium (Send out)2018-12-28 23:49:00* Test Item Value Reference Range Interpretation Comments Calcium (Send out) (test code = 34982-3) 8.5 8.7-10.2 L [facility] HospitalParathyroid Hormone Interpretation 2018-12-28 23:49:00* Test Item Value Reference Range Interpretation Comments Parathyroid Hormone Interpretation (test code = Parathyroid Hormone Interpretation) Comment . Interpretation Intact PTH Calcium (pg/mL) (mg/dL)Normal 15 - 65 8.6 - 10.2Pr imary Hyperparathyroidism >65 >10.2Secondary Hyperparathyroidism >65 <10.2Non-Parathyroid Hypercalcemia <65 >10.2Hypoparathyroidism <15 < 8.6Non- Parathyroid Hypocalcemia 15 - 65 < 8.6Performed at: - [facility], [place], [place] [id number] Director: Nacho Arenas MD, Phone: [phone] at: [facility] LabEr[facility] [place] [id number] [place], [place] [id number] Director: Mary Fuentes MD, Phone: [phone] [place] [address]VIEW (KUB)2018-12-27 13:05:00 [facility] [address] [place] [address] Patient Name: MIGUEL BIRCH MR #: [id number] : 1990 Age/Sex: 28/F Req #: [id number] Adm Physician: Ordered by: VIKTOR WILLIAMSON MD Report #: [id number] Location: OR Room/Bed: Procedure: [id number] [facility] Exam Date: Exam Time: REPORT STATUS: Signed Exam: KUB - 2 views Indication: Renal calculus, preoperative Comparison: KUB of 10/02/2018 Findings: Right lower pole 4 mm renal calculus. No other radiographically apparent renal calculi. Nonobstructive bowel gas pattern. No free air. Osseous structures appear unremarkable. Impression: 4 mm right lower pole renal calculus. Signed by: Jeff Cortez MD on 12/27/2018 1:06 PM Dictated By: JEFF CORTEZ MD 1306 Tra nscribed By: PEDRO on 12/27/18 1306 COPY TO: VIKTOR WILLIAMSON MD Uric Btez0655-92-65 12:42:00* Test Item Value Reference Range Interpretation Comments Uric Acid (test code = 3084-1) 5.5 2.6-8.0 [facility] HospitalUS RENAL RETROPERITONEAL GNJT7785-94-56 08:57:00 [facility] [address] [place] [address] Patient Name: MIGUEL BIRCH MR #: [id number] : 1990 Age/Sex: 28/F Req #: [id number] Adm Physician: Ordered by: HERIBERTO ALMEIDA MD Report #: [id number] Location: Room/Bed: Procedure: [id number] US/US RENAL RETROPERITONEAL COMP Exam Date: 10/02/18 Exam Time: 0803 REPORT STATUS: Signed EXAM: Renal Ultrasound INDICATION: [id number] COMPARISON: None TECHNIQUE: Transverse and longitudinal images of the kidneys and bladder were obtained. FINDINGS: Right Kidney: Length: 10.6 cm Appearance: Normal echogenicity. Collecting system: No hydronephrosis St ones: None Cyst/Mass: None Left Kidney: Length: 10.6 cm Appearance: Normal echogenicity. Collecting system: No hydronephrosis Stones: None C yst/Mass: None Bladder: No mass or calculi. Prevoid volume estimate of 1 05.5 cc. Bilateral ureteral jets seen. Post void images demonstrate volume est imate of 6.4 cc. IMPRESSION: No hydronephrosis. The right lower pole 5 mm renal calculus seen on KUB is not well appreciated on this sonographic e xamination. Signed by: Jeff Cortez MD on 10/02/2018 8:59 AM Dictated By: JEFF CORTEZ MD Tra nscribed By: PEDRO on 10/02/1859 COPY TO: HERIBERTO ALMEIDA MD US PELVIC (NON OB) MANDEL OR [id number] 08:57:00 [place] [address] Patient Name: MIGUEL BIRCH MR #: [id number] : 1990 Age/Sex: 28/F Req #: [id number] Adm Physician: Ordered by: VIKTOR WILLIAMSON MD Report #: [id number] Location: Room/Bed: Procedure: [id number] US/US P ELVIC (NON OB) MANDEL OR F/U Exam Date: 10/02/18 Exam T jessica: [id number] REPORT STATUS: Signed EXAM: Renal Ultrasound INDICATION: [id number] COMPARISON: None TECHNIQUE: Transverse and longitudinal images of the kidneys and bladder were obtained. FINDINGS: Right Kidney: Length: 10.6 cm Appearance: Normal echogenicity. Collecting system: No hydronephrosis Sto steve: None Cyst/Mass: None Left Kidney: Length: 10.6 cm Appearance: N ormal echogenicity. Collecting system: No hydronephrosis Stones: None Cy st/Mass: None Bladder: No mass or calculi. Prevoid volume estimate of 10 5.5 cc. Bilateral ureteral jets seen. Post void images demonstrate volume polo mate of 6.4 cc. IMPRESSION: No hydronephrosis. The right lower pole 5 mm renal calculus seen on KUB is not well appreciated on this sonographic ex amination. Signed by: Jeff Cortez MD on 10/02/2018 8:59 AM Dictated B y: JEFF CORTEZ MD [place] scribed By: PEDRO on 10/02/1859 COPY TO: VIKTOR WILLIAMSON MD ABDOMEN-1VIEW (KUB)2018-10-02 08:41:00 [place] [address] Patient Name: MIGUEL BIRCH MR #: [id number] : 1990 Age/Sex: 28/F Req #: [id number] Adm Physician: Ordered by: VIKTOR WILLIAMSON MD Report #: [id number] Location: Room/Bed: Procedure: [id number] DX/ANGEL MEN-1VIEW (KUB) Exam Date: 10/02/18 Exam Time: 08 REPORT STATUS: Signed Exam: KUB - 2 views Indication: Renal calculi Comparison: None Findings: 5 mm right lower pole renal calculus. No other radiographically apparent renal calculi. Nonobstructive bowel gas pattern. The osseous structures appear unr emarkable. Impression: 5 mm right lower pole renal calculus. Signed by: Jeff Cortez MD on 10/02/2018 8:44 AM Dictated By: JEFF CORTEZ MD Elect ronically Signed By: JEFF CORTEZ MD on 10/02/18843 Transcribed By: PEDRO on 10/02/18843 COPY TO: VIKTOR WILLIAMSON MD BASIC METABOLIC PANEL 2018-07-31 13:01:00* Test Item Value Reference Range Interpretation Comments SODIUM (test code = NA) 138 mEq/L 134-147 N POTASSIUM (test code = K) 4.1 mEq/L 3.4-5.0 N CHLORIDE (test code = CL) 105 mEq/L 100-108 N CARBON DIOXIDE (test code = CO2) 28 mEq/L 21-33 N ANION GAP (test code = GAP) 9 0-20 N GLUCOSE (test code = GLU) 93 mg/dL 70-110 N BLOOD UREA NITROGEN (test code = BUN) 8 mg/dL 7-18 N GLOMERULAR FILTRATION RATE (test code = GFR) 101.1 110-120 L Units of measure = ml/min/1.73 m2 CREATININE (test code = CREAT) 0.7 mg/dL 0.6-1.3 N CALCIUM (test code = CA) 8.7 mg/dL 8.0-10.5 N HEPATIC FUNCTION [id number] 13:01:00* Test Item Value Reference Range Interpretation Comments TOTAL PROTEIN (test code = PROT) 7.6 g/dL 6.4-8.2 N ALBUMIN (test code = ALB) 3.70 g/dL 3.4-5.0 N BILIRUBIN TOTAL (test code = BILT) 0.50 mg/dL 0.0-1.0 N BILIRUBIN DIRECT (test code = BILD) < 0.10 MG/DL 0.0-0.30 N BILIRUBIN INDIRECT (test code = BILIND) 0.40 MG/DL SGOT/AST (test code = AST) 66 IUnit/L 15-37 H SGPT/ALT (test code = ALT) 43 IUnit/L 15-65 N ALKALINE PHOSPHATASE TOTAL (test code = ALKP) 69 IUnit/L 20-125 N [id number] 13:01:00* Test Item Value Reference Range Interpretation Comments LIPASE (test code = LIP) 72 IUnit/L 73-393 L HCG SERUM [id number] 13:01:00* Test Item Value Reference Range Interpretation Comments HCG SERUM QUAL (test code = HCGQL) SERUM NEGATIVE NEGATIVE BASIC METABOLIC [id number] 12:56:00* Test Item Value Reference Range Interpretation Comments SODIUM (test code = NA) mEq/L 134-147 POTASSIUM (test code = K) mEq/L 3.4-5.0 CHLORIDE (test code = CL) mEq/L 100-108 CARBON DIOXIDE (test code = CO2) mEq/L 21-33 ANION GAP (test code = GAP) 0-20 GLUCOSE (test code = GLU) mg/dL 70-110 BLOOD UREA NITROGEN (test code = BUN) mg/dL 7-18 GLOMERULAR FILTRATION RATE (test code = GFR) 110-120 CREATININE (test code = CREAT) mg/dL 0.6-1.3 CALCIUM (test code = CA) mg/dL 8.0-10.5 HEPATIC FUNCTION [id number] 12:56:00* Test Item Value Reference Range Interpretation Comments TOTAL PROTEIN (test code = PROT) g/dL 6.4-8.2 ALBUMIN (test code = ALB) g/dL 3.4-5.0 BILIRUBIN TOTAL (test code = BILT) mg/dL 0.0-1.0 BILIRUBIN DIRECT (test code = BILD) MG/DL 0.0-0.30 SGOT/AST (test code = AST) IUnit/L 15-37 SGPT/ALT (test code = ALT) IUnit/L 15-65 ALKALINE PHOSPHATASE TOTAL (test code = ALKP) IUnit/L 20-125 [id number] 12:56:00* Test Item Value Reference Range Interpretation Comments LIPASE (test code = LIP) IUnit/L 73-393 HCG SERUM [id number] 12:56:00* Test Item Value Reference Range Interpretation Comments HCG SERUM QUAL (test code = HCGQL) SERUM NEGATIVE NEGATIVE URINALYSIS [id number] 12:51:00* Test Item Value Reference Range Interpretation Comments UA COLOR (test code = COLU) YELLOW YEL/STRAW UA APPEARANCE (test code = APPU) SL CLOUDY CLEAR UA GLUCOSE DIPSTICK (test code = DGLUU) NEGATIVE NEGATIVE UA BILIRUBIN DIPSTICK (test code = BILU) NEGATIVE NEGATIVE UA KETONE DIPSTICK (test code = KETU) NEGATIVE NEGATIVE UA SPECIFIC GRAVITY (test code = SGU) 1.023 1.005-1.030 N UA BLOOD DIPSTICK (test code = SHARONDA) NEGATIVE NEGATIVE UA PH DIPSTICK (test code = LAMBERTO) 6.0 5.0-7.0 N UA PROTEIN DIPSTICK (test code = PROU) NEGATIVE NEGATIVE UA UROBILINIOGEN DIPSTICK (test code = URO) 2.0 mg/dL 0.2-1.0 A UA NITRITE DIPSTICK (test code = DE) NEGATIVE NEGATIVE UA LEUKOCYTE ESTERASE DIPSTICK (test code = LEUU) TRACE NEGA TIVE A UA WBC (test code = WBCU) 4-9 WBC/HPF 0-3 A UA RBC (test code = RBCU) 4-10 RBC/HPF 0-3 UA BACTERIA (test code = BACU) TRACE /HPF NONE SEEN UA SQUAMOUS CELLS (test code = SQU) 0-5 /HPF NONE SEEN UA MUCUS (test code = MUCU) 3+ /LPF NONE SEEN A CBC W/AUTO [id number] 12:42:00* Test Item Value Reference Range Interpretation Comments WHITE BLOOD CELL (test code = WBC) 3.48 x10 3/uL 4.5-11.0 L RED BLOOD CELL (test code = RBC) 4.66 x10 6/uL 3.54-5.02 N HEMOGLOBIN (test code = HGB) 13.8 g/dL 11.0-15.0 N HEMATOCRIT (test code = HCT) 42.6 % 33.0-45.0 N MEAN CELL VOLUME (test code = MCV) 91.4 fL 81.0-99.0 N MEAN CELL HGB (test code = MCH) 29.6 pg 27.0-33.0 N MEAN CELL HGB CONCETRATION (test code = MCHC) 32.4 g/dL 33.0-37. 0 L RED CELL DISTRIBUTION WIDTH CV (test code = RDW) 12.9 % 11.5- 14.5 N RED CELL DISTRIBUTION WIDTH SD (test code = RDW-SD) 43.0 fL 37 .0-54.0 N PLATELET COUNT (test code = PLT) 207 x10 3/uL 150-400 N MEAN PLATELET VOLUME (test code = MPV) 9.3 fL 7.0-9.0 H NEUTROPHIL % (test code = NT%) 62.6 % 56.0-77.0 N IMMATURE GRANULOCYTE % (test code = IG%) 0.3 % 0.0-2.0 N LYMPHOCYTE % (test code = LY%) 25.0 % 14.0-32.0 N MONOCYTE % (test code = MO%) 10.9 % 4.8-9.0 H EOSINOPHIL % (test code = EO%) 0.6 % 0.3-3.7 N BASOPHIL % (test code = BA%) 0.6 % 0.0-2.0 N NUCLEATED RBC % (test code = NRBC%) 0.0 % 0-0 N NEUTROPHIL # (test code = NT#) 2.18 x10 3/uL 2.0-7.6 N IMMATURE GRANULOCYTE # (test code = IG#) 0.01 x10 3/uL 0.00-0.03 N LYMPHOCYTE # (test code = LY#) 0.87 x10 3/uL 1.0-3.8 L MONOCYTE # (test code = MO#) 0.38 x10 3/uL 0.1-0.8 N EOSINOPHIL # (test code = EO#) 0.02 x10 3/uL 0.0-0.2 N BASOPHIL # (test code = BA#) 0.02 x10 3/uL 0.0-0.2 N NUCLEATED RBC # (test code = NRBC#) 0.00 x10 3/uL 0.0-0.1 N MANUAL DIFF REQUIRED (test code = MDIFF) NO
[2019-10-20 17:47] VITALS: BP 128/80
--- NOTE | 2019-10-20 17:54 | Emergency Department Note ---
History of Present Illnes History of Present Illness Chief Complaint: Eye, Ear, Nose, Throat, Dental History of Present Illness This is a 29 year old female RIGHT SIDE FACE W/STAPH INFECTION. WENT TO CLINIC AND GIVEN CLINDAMYCIN. VOMITING AFTER SHE STARTED ANTIBIOTICS. PATIENT NOW C/O OF LYMPH NODE SWELLING AND THROAT PAIN AND RIGHT EAR. Historian: Patient Additional Treatment SUPERVISOR MOLD YARD: 1 HR SUPERVISOR MOLD YARD, TLENOL 200 MG Vamper Required: No Onset (how long ago): day(s) (5) Location: RIGHT CHEEK Quality: PAIN Radiation: Reports non-radiation Severity: moderate Onset quality: sudden Timing of current episode: constant (NOT RESPONDING TO CLINDAMYCIN) Chronicity: new Context: Denies recent illness Relieving factors: none Exacerbating factors: none Associated symptoms: Reports denies other symptoms Past Medical/Family History Physician Review I have reviewed the patient's past medical and family history. Any updates have been documented here. Past Medical History Recent Fever: Yes (100.1) Clinical Suspicion of Infectio: No New/Unexplained Change in Ment: No Past Medical History: Kidney Stones Other Medical History: adhd Other Surgery: lithothripsy Social History Smoking Cessation: Never Smoker Counseling Performed: No Alcohol Use: None Any Illegal Drug Use: No Other Last Tetanus: unknown Any Pre-Existing Lines (PICC,: No Review of Systems Review of Systems Constitutional: Reports no symptoms EENTM: Reports no symptoms Cardiovascular: Reports no symptoms Respiratory: Reports no symptoms Gastrointestinal: Reports no symptoms Genitourinary: Reports no symptoms Musculoskeletal: Reports no symptoms Integumentary: Reports as per HPI Neurological: Reports no symptoms Psychological: Reports no symptoms Endocrine: Reports no symptoms Hematological/Lymphatic: Reports no symptoms Physical Exam Related Data Allergies: Coded Allergies: No Known Allergies (Unverified , 12/25/18) Triage Vital Signs Vital Signs Date Time Temp Pulse Resp B/P (MAP) Pulse Ox O2 Delivery O2 Flow Rate FiO2 10/20/19 13:48 100.1 129 18 144/93 100 Room Air Vital signs reviewed: Yes Physical Exam CONSTITUTIONAL Constitutional: Present well-developed, Present well-nourished HENT HENT: Present normocephalic, Present atraumatic, Present oropharynx clear/moist, Present oropharynx normal, Present nose normal HENT L/R: Present left TM normal, Present right TM normal, Present left ext ear normal, Present right ext ear normal EYES Eyes: Reports PERRL, Reports conjunctivae normal NECK Neck: Present ROM normal PULMONARY Pulmonary: Present effort normal, Present breath sounds normal CARDIOVASCULAR Cardiovascular: Present regular rhythm, Present heart sounds normal, Present capillary refill normal, Present normal rate GASTROINTESTINAL Abdominal: Present soft, Present nontender, Present bowel sounds normal GENITOURINARY Genitourinary: Present exam deferred SKIN Skin: Present other (1X1.5 CM ERYTHEMATOUS LESION RIGHT CHEEK, APPEARANCE LIKE IMPETIGO) MUSCULOSKELETAL Musculoskeletal: Present ROM normal NEUROLOGICAL Neurological: Present alert, Present oriented x 3, Present no gross motor or sensory deficits PSYCHOLOGICAL Psychological: Present mood/affect normal, Present judgement normal Assessment & Plan Medical Decision Making MDM TYLENOL FOR LOW GRADE FEVER AND TACHYCARDIA, PT DOES NOT APPEAR TOXIC Reassessment Reassessment DC HOME, DC CLINDA, BACTRIM/DOXY/BACTROBAN Assessment & Plan Final Impression: (1) Cellulitis (2) Impetigo Depart Disposition: HOME, SELF-CARE Last Vital Signs Date Time Temp Pulse Resp B/P (MAP) Pulse Ox O2 Delivery O2 Flow Rate FiO2 10/20/19 17:47 94 16 97 10/20/19 13:48 100.1 144/93 Room Air Home Meds Reported Medications Acetaminophen With Codeine (TYLENOL WITH CODEINE #3 TABLET) 1 Each Tablet, 300 MG PO Q4HR PRN for ABDOMINAL PAIN, TAB 01/13/19 Phentermine Hcl (PHENTERMINE HCL) 37.5 Mg Tablet, 37.5 MG PO DAILY 12/25/18 Amphet Asp/Amphet/D-Amphet (ADDERALL 10 MG TABLET) 10 Mg Tablet, 2 MG PO DAILY 12/25/18 Medications in the ED Acetaminophen 975 mg ONCE ONCE PO Last administered on 10/20/19at 13:59; Admin Dose 975 MG; Start 10/20/19 at 14:00; Stop 10/20/19 at 14:02; Status DC Ketorolac Tromethamine 60 mg ONCE ONCE IM Last administered on 10/20/19at 13:59; Admin Dose 60 MG; Start 10/20/19 at 14:00; Stop 10/20/19 at 14:02; Status DC Ondansetron HCl 4 mg STK-MED ONCE .ROUTE ; Start 10/20/19 at 14:02; Stop 10/20/19 at 13:56; Status DC Ondansetron HCl 4 mg ONCE ONCE PO Last administered on 10/20/19at 14:00; Admin Dose 4 MG; Start 10/20/19 at 14:00; Stop 10/20/19 at 14:02; Status DC ANA SEWELL MD Oct 20, 2019 17:54
== END 2019-10-20 19:31 | disposition home or self-care (01) ==
LOC: ER 13:30
DX: L03.211 Cellulitis of face (principal); R50.9 Fever, unspecified; L01.00 Impetigo, unspecified; F90.9 Attention-deficit hyperactivity disorder, unspecified type; Z87.442 Personal history of urinary calculi
CPT/HCPCS: 99282; J1885; Q0162